=== PATIENT | female | born 1995 | race Caucasian/White ===

== ENCOUNTER 2020-10-11 19:30 | Emergency (ER) | payer OTHER ==
[~2020-10-11] VITALS: Ht 162.6 cm; Wt 88.5 kg
[2020-10-11 23:06] LABS: HEMOGLOBIN 15.1 gm/dl (12.3-15.3); RED BLOOD COUNT 5.11 M/UL (4.00-5.10); WHITE BLOOD COUNT 18.6 K/UL (4.5-11.0)
[2020-10-11 23:39] LABS: BUN/CREATININE RATIO 16 (0-10)
[2020-10-12 08:25] LABS: HEMOGLOBIN 13.3 gm/dl (12.3-15.3); RED BLOOD COUNT 4.72 M/UL (4.00-5.10)
[2020-10-12 08:30] LABS: WHITE BLOOD COUNT 8.2 K/UL (4.5-11.0)
[2020-10-12 08:44] LABS: BUN/CREATININE RATIO 11 (0-10)
[2020-10-12] MEDS ORDERED: PERCOCET 7.5-31 EACH PO ×2 (13:34→13:37)
[2020-10-12] MEDS ORDERED: ZOFRAN4 MG PO (13:39)
== END 2020-10-12 08:33 | disposition admitted as inpatient to this hospital (09) ==
LOC: ER1 19:30 → CDU 22:29 → ER1 22:29 → CDU 10-12 03:07 → ER1 10-12 03:07
PROVIDERS: Internal Medicine; Orthopaedic Surgery; Physician Assistant
PROC: 0PSC04Z Reposition Right Humeral Head with Internal Fixation Device, Open Approach (ICD-10-PCS; 2020-10-12)
PROC: 0LS30ZZ Reposition Right Upper Arm Tendon, Open Approach (ICD-10-PCS; 2020-10-12)
PROC: 0PSF04Z Reposition Right Humeral Shaft with Internal Fixation Device, Open Approach (ICD-10-PCS; principal; 2020-10-12 09:00)
DX: S42.251A Displaced fracture of greater tuberosity of right humerus, initial encounter for closed fracture (principal); S42.301A Unspecified fracture of shaft of humerus, right arm, initial encounter for closed fracture; S90.01XA Contusion of right ankle, initial encounter; E87.6 Hypokalemia; Z20.822 Contact with and (suspected) exposure to COVID-19; D72.829 Elevated white blood cell count, unspecified; F17.210 Nicotine dependence, cigarettes, uncomplicated; V49.9XXA Car occupant (driver) (passenger) injured in unspecified traffic accident, initial encounter; Y92.410 Unspecified street and highway as the place of occurrence of the external cause
CPT/HCPCS: 71260; 72125; 73030; 73060; 73590; 73610; 73630; 76000; 80048; 80053; 84703; 85025; 96365; 96366; 96368; 96375; 96376; 99285; C1713; J0171; J0690; J1100; J2001; J2250; J2270; J2370; J2405; J2704; J2710; J2795; J3010; J3480; J7030; J7120; Q9967; U0002